=== PATIENT | female | born 1960 | race Caucasian/White ===

== ENCOUNTER 2022-09-14 15:21 | Emergency (ER) | payer OTHER, BC ==
[2022-09-14] MEDS ORDERED: Bacitracin Oint 1 GM U/D Packet TOP ONE (15:50)
== END 2022-09-14 17:44 | disposition home or self-care (01) ==
LOC: JP.ED 15:21
DX: S50.01XA Contusion of right elbow, initial encounter (principal); S40.011A Contusion of right shoulder, initial encounter; S20.211A Contusion of right front wall of thorax, initial encounter; S05.11XA Contusion of eyeball and orbital tissues, right eye, initial encounter; S00.83XA Contusion of other part of head, initial encounter; S80.811A Abrasion, right lower leg, initial encounter; Z88.5 Allergy status to narcotic agent; V86.56XA Driver of dirt bike or motor/cross bike injured in nontraffic accident, initial encounter; Y92.410 Unspecified street and highway as the place of occurrence of the external cause
CPT/HCPCS: 70450; 71101-26-RT; 71101-RT; 99285